=== PATIENT | female | born 1950 | race Caucasian/White ===

== ENCOUNTER 2023-06-25 16:27 | Observation (INO) | payer MEDICARE, BC, SELFPAY ==
[2023-06-25] VITALS (10 sets, daily range): BP systolic 159–192; BP diastolic 82–103; PULSE 73–93; RESP 16–18; TEMP 36.5–36.8; O2SAT 96–99; BMI 30.7; BMI 31.4
--- NOTE | 2023-06-25 17:19 | CRLHL7_ITS ---
For Patients: As a result of the Century Cures Act, medical imaging exams and procedure reports are released immediately into your electronic medical record. You may view this report before your referring provider. If you have questions, please contact your health care provider. INDICATION: Trauma. TECHNIQUE: Multiplanar CT examination of the head was performed without the use of intravenous contrast. COMPARISON: CT head 09/14/2021.. FINDINGS: No loss of lucio-white differentiation suggestive of recent territorial infarct. No intracranial hemorrhage, abnormal extra-axial fluid collection or midline shift. The ventricles and cerebral sulci are prominent in caliber, compatible with mild generalized parenchymal volume loss. Mild patchy periventricular hypoattenuation, nonspecific but suggestive of chronic microvascular ischemic changes.. The basal cisterns are patent. Small right frontal scalp hematoma and right periorbital soft tissue edema. Acute comminuted mildly displaced fracture of the inferior orbital floor with layering hemorrhagic blood products within the right maxillary sinus. There may be slight inferior deviation of the subtly enlarged inferior rectus muscle, raising the possibility of entrapment. There may be trace foci of intraconal gas within the right orbit (2:23 and 6:30). There is questionable haziness of the intraconal fat, raising the possibility of a retrobulbar hematoma (6:27). IMPRESSION: 1. Right frontal scalp hematoma and periorbital soft tissue swelling, with an underlying acute minimally displaced right inferior orbital blowout fracture, with findings questionable for entrapment of the inferior rectus muscle. Haziness of the intraconal fat raises the possibility of a subtle retrobulbar hematoma. Ophthalmological consultation is advised. 2. No intracranial hemorrhage or midline shift. Please note that all CT scans at this facility use dose modulation, iterative reconstruction, and/or weight-based dosing when appropriate to reduce radiation dose to as low as reasonably achievable. Dictated by Paul Gutierrez MD @ 06/25/2023 6:17:42 PM (Electronically Signed)
--- NOTE | 2023-06-25 17:23 | ED.GENADULT ---
HPI - General Adult General Chief complaint: Laceration/Wound Stated complaint: Hit wooden board, head and eye, nausea Time Seen by Provider: 06/25/23 16:42 History of Present Illness HPI narrative: This 73-year-old female comes in reporting a fall where she hit her forehead and her face. She did not have loss of consciousness. She has a laceration below her right eye. She does not report a headache but does feel some nausea. Her tetanus status is up-to-date. She does take a baby aspirin daily. Related Data Home Medications Medication Instructions Recorded Confirmed allopurinol 300 mg tablet 300 mg PO DAILY 06/25/23 06/25/23 escitalopram oxalate 10 mg tablet 10 mg PO QAM 06/25/23 06/25/23 fluticasone propionate 50 1 spray intranasal BID 06/25/23 06/25/23 mcg/actuation nasal spray,suspension levothyroxine 100 mcg tablet 100 mcg PO QAM 06/25/23 06/25/23 (Synthroid) losartan 50 mg tablet mg PO 06/25/23 rosuvastatin 40 mg tablet 40 mg PO QPM 06/25/23 06/25/23 Allergies Allergy/AdvReac Type Severity Reaction Status Date / Time No Known Drug Allergies Allergy Verified 06/25/23 16:39 Review of Systems Status of ROS: Reports: 10 or more systems reviewed and unremarkable except as noted in History and below Narrative: Constitutional: No fevers, no weight gain or loss. Eyes: No discharge. No vision changes. HENT: No congestion, no sore throat, no ear pain. Cardiovascular: No chest pain, no palpitations. Respiratory: No shortness of breath, no wheezes, no cough. Gastrointestinal: No abdominal pain, no vomiting, no diarrhea. Genitourinary: No dysuria, no hematuria. Musculoskeletal: Normal range of motion. Skin: No rashes, no pruritis. Neurological: No dizziness, weakness, sensory change, speech change. Endo/Heme/Allergies: No bruising or bleeding. No polydipsia. Pysch: no suicidality, no anxiety, no insomnia. All other systems reviewed and are negative. PFS PFS Social History Smoking Status: Never smoker How often do you have a drink containing alcohol: never How often do you have six or more drinks on one occasion: Never AUDIT-C Alcohol total score: 0 Non-prescribed substance use: denies use Exam Narrative: Exam Narrative: Constitutional: Well-developed, well-nourished, no acute distress. HEENT: 3 cm laceration of the cheek bone below her right eye. Her right eye has bruising around it. 0.5 cm laceration just below the medial aspect of the right eyebrow. Subconjunctival hematoma in the right eye. Neck: Normal range of motion. Nontender. Supple. Heart: Regular. No murmurs. Normal rate. Intact distal pulses. Lungs: Clear to auscultation. No chest discomfort. No wheezes, rhonchi, or rales. Abdomen: Normal bowel sounds. Nontender. No rebound tenderness. Genitalia: Deferred. Back: No midline tenderness. Normal range of motion. Extremities: Normal range of motion. No injury. Skin: Intact. No rash. Warm. No erythema or pallor. Neurologic: No altered sensation. No weakness. Alert and oriented. Psychiatric: No suicidality. No anxiety or depression. No insomnia. Nursing notes and vitals signs are reviewed. Const: Vital Signs, click to edit/add: Vital Signs - 24 hr 06/25/23 16:36 06/25/23 17:15 06/25/23 19:47 Temperature 97.7 F Pulse Rate [Right Pulse Oximeter] 93 92 74 Respiratory Rate 18 16 Blood Pressure [Ri ght Upper Arm] 192/83 H 176/86 H 167/82 H Pulse Oximetry 96 99 98 Oxygen Delivery Me thod Room Air Room Air Room Air 06/25/23 19:49 Temperature Pulse Rate [Right Pulse Oximeter] 73 Respiratory Rate Blood Pressure [Ri ght Upper Arm] 167/82 H Pulse Oximetry 97 Oxygen Delivery Me thod Room Air Course Vital Signs Vital signs: Initial Vital Signs Temperature 97.7 F 06/25/23 16:36 Temperature Source Temporal Artery Scan 06/25/23 16:36 Pulse Rate 93 06/25/23 16:36 Respiratory Rate 18 06/25/23 16:36 Blood Pressure 192/83 H 06/25/23 16:36 Blood Pressure Mean 119 H 06/25/23 16:36 Blood Pressure Position Sitting 06/25/23 16:36 Pulse Oximetry 96 06/25/23 16:36 Oxygen Delivery Method Room Air 06/25/23 16:36 Vital Signs Temperature 97.7 F 06/25/23 16:36 Pulse Rate 93 06/25/23 16:36 Respiratory Rate 18 06/25/23 16:36 Blood Pressure 192/83 H 06/25/23 16:36 Pulse Oximetry 96 06/25/23 16:36 Oxygen Delivery Method Room Air 06/25/23 16:36 Temperature 97.7 F 06/25/23 16:36 Pulse Rate 73 06/25/23 19:49 Respiratory Rate 16 06/25/23 17:15 Blood Pressure 167/82 H 06/25/23 19:49 Pulse Oximetry 97 06/25/23 19:49 Oxygen Delivery Method Room Air 06/25/23 19:49 Medications Administered Medications: Discontinued Medications Generic Name Dose Route Start Last Admin Trade Name Minh PRN Reason Stop Dose Admin Lidocaine/Epinephrine 20 ml 06/25/23 19:20 06/25/23 19:26 Lidocaine 1%-Epi 1:100,000 20 Ml INFILTRATI 06/25/23 19:21 20 ml ONCE ONE Administration Ondansetron HCl 4 mg 06/25/23 17:19 06/25/23 17:25 Ondansetron Odt 4 Mg Tab PO 06/25/23 17:20 4 mg ONCE ONE Administration Medical Decision Making MDM Narrative Medical decision making narrative: This patient comes in for evaluation and treatment of an injury to her head as described above. She does take a baby aspirin daily. She has a laceration below her right eye and a very small 1 in the upper medial eyelid. CT imaging of her head is obtained and shows no intracranial abnormality. She does have a inferior orbital fracture. Radiologist was concerned about entrapment of eye muscles but on exam she does not display any such and trap mint. After anesthesia with 1% lidocaine with epinephrine the wound is continuing to bleed and during the injection of anesthesia this triggered more bleeding as there is a small vessel involved. I did place 7 sutures using 5.0 Ethilon suture in interrupted fashion. This because the bleeding to stop but she very quickly developed a underlying hematoma. About 10 minutes afterwards she did have a sport of blood coming between the sutures because of the pressure of blood under the skin. She then had surge of foam placed with a pressure dressing to arrest the bleeding. The patient was able to get up and ambulate but states that she does not feel safe going home as she lives at home alone. I did speak with Dr. Saldaña regarding her and she is agreed to bring her into the hospital overnight. Imaging Data CT scan - head: Radiologist's impression: 1. Right frontal scalp hematoma and periorbital soft tissue swelling, with an underlying acute minimally displaced right inferior orbital blowout fracture, with findings questionable for entrapment of the inferior rectus muscle. Haziness of the intraconal fat raises the possibility of a subtle retrobulbar hematoma. Ophthalmological consultation is advised. 2. No intracranial hemorrhage or midline shift. Discharge Plan Discharge Clinical Impression: Laceration, Fracture of inferior orbital wall Patient Disposition: Admitted As Observation Condition: Stable Prescriptions: No Action losartan 50 mg tablet PO levothyroxine [Synthroid] 100 mcg tablet 100 mcg PO QAM allopurinol 300 mg tablet 300 mg PO DAILY fluticasone propionate 50 mcg/actuation spray,suspension 1 spray INTRANASAL BID escitalopram oxalate 10 mg tablet 10 mg PO QAM rosuvastatin 40 mg tablet 40 mg PO QPM Follow Up/Referrals: Sonny Loredo MD [Primary Care Provider] -
[2023-06-25] MEDS: ONDANSETRON ODT 4 MG TAB PO (17:25)
--- NOTE | 2023-06-25 20:00 | ED.NURSE ---
Pt R cheek lac oozing steady small amount of blood after stitches placed by MD. MD notified, MD in room and placed surgifoam and gauze over stitches, bond writer applied coban wrap around pt's head to apply pressure over lac.
--- NOTE | 2023-06-25 20:30 | ED.NURSE ---
Pt declines ordered abx at this time due concern of possible allergy conflict. No allergies entered in our system at this time. Pt provided casualty underwriter with allergy list, casualty underwriter updated this list in the chart. Pt states she does not want to take any abx here until we are able to access her [facility] chart and confirm that her allergy list is consistent with what is in the [facility] chart. Report called to M/S RN, M/S RN advised of pt's concern about her allergy list and her concerns about her discomfort near her bandage site.
--- NOTE | 2023-06-25 20:31 | ED.NURSE ---
Pt complaining of discomfort/pain at the site of her wound bandage over her R eye. Pt states her R eye is painful from the bandage. Bandage assessed, the gauze from the bandage does not appear to be putting any direct pressure on the pt's eye. The patient's R eyebrow and R eyelid are notably swollen and bruised from her injury; tag writer explained to pt that this bruising and swelling may be causing the pain around her R eye. Reception Interviewer inquired if pt would like some pain medication due to her pain. Pt responds: No, I want you to fix this bandage. Reception Interviewer again explained that the bandage was in place to control bleeding from the lac and unfortunately this may continue to cause discomfort due to the pt's bruising and swelling around her eye. Pt continues to request modification of bandage to accommodate her complaint of discomfort. Bandage again assessed for possible modification by tag writer; tag writer unable to modify bandage at this time in a way that would not compromise the purpose of the bandage.
[2023-06-25] MEDS: ACETAMINOPHEN 500 MG TABLET 1000 MG PO (21:28)
--- NOTE | 2023-06-25 22:27 | PM.IMHP1 ---
Hospitalist- H&P: HPI History of Present Illness Time Seen by Provider: 22:00 Date Seen: 06/25/23 Chief complaint: Hit wooden board, head and eye, nausea Narrative: Eileen Chou is a 73 year old female with a history of paroxysmal atrial fibrillation for which she is not on anticoagulation, coronary artery disease, unstable angina, hypertensive urgency, obstructive sleep apnea, and hypothyroidism who was taking apart it desk in her basement this evening when she tripped on part of it and fell into the corner of a piece of wood lying on the floor. The corner went into her cheek just under her right eye. She denies any loss of consciousness. She immediately reached up with her hand and when she took it away it was full of blood. She was able to see out of her eye immediately. She grabbed some laundry that was nearby and pressed it to her eye, went upstairs and called 911. She was in her usual state of health and feeling well prior to this happening. Since this happened she has felt nauseous and dizzy especially with laying down flat. In the emergency department the laceration was stitched up in she had head CT. She was still oozing from the laceration and so surgeon foam and a pressure dressing were applied. Review of Systems Status of ROS: Reports: 10 or more systems reviewed and unremarkable except as noted in History and below [facility] Medical History (Updated 06/25/23 @ 22:31 by Sarah Saldaña MD) Degenerative joint disease of right acromioclavicular joint ?M19.011 - Primary osteoarthritis, right shoulder (ICD-10) Primary osteoarthritis of right shoulder ?M19.011 - Primary osteoarthritis, right shoulder (ICD-10) Hypokalemia ?E87.6 - Hypokalemia (ICD-10) Paroxysmal atrial fibrillation ?I48.0 - Paroxysmal atrial fibrillation (ICD-10) Hypertensive urgency ?I16.0 - Hypertensive urgency (ICD-10) Hyperlipidemia ?E78.5 - Hyperlipidemia, unspecified (ICD-10) Stenosis of right carotid artery ?I65.21 - Occlusion and stenosis of right carotid artery (ICD-10) Unstable angina ?I20.0 - Unstable angina (ICD-10) Coronary artery disease involving [place] coronary artery of [place] heart with angina pectoris ?I25.119 - Atherosclerotic heart disease of [place] coronary artery with unspecified angina pectoris (ICD-10) Impingement syndrome of left shoulder ?M75.42 - Impingement syndrome of left shoulder (ICD-10) Incomplete tear of left rotator cuff ?M75.112 - Incomplete rotator cuff tear or rupture of left shoulder, not specified as traumatic (ICD-10) Hyperuricemia ?E79.0 - Hyperuricemia without signs of inflammatory arthritis and tophaceous disease (ICD-10) Adhesive capsulitis of left shoulder ?M75.02 - Adhesive capsulitis of left shoulder (ICD-10) Acute idiopathic gout involving toe of right foot ?M10.071 - Idiopathic gout, right ankle and foot (ICD-10) Hyperopia of both eyes with astigmatism and presbyopia ?H52.03 - Hypermetropia, bilateral (ICD-10) ?H52.203 - Unspecified astigmatism, bilateral (ICD-10) ?H52.4 - Presbyopia (ICD-10) Right thyroid nodule ?E04.1 - Nontoxic single thyroid nodule (ICD-10) Nuclear senile cataract of both eyes ?H25.13 - Age-related nuclear cataract, bilateral (ICD-10) NAVIN (obstructive sleep apnea) ?G47.33 - Obstructive sleep apnea (adult) (pediatric) (ICD-10) Eczema ?L30.9 - Dermatitis, unspecified (ICD-10) Obesity (BMI 30-39.9) ?E66.9 - Obesity, unspecified (ICD-10) Tinnitus ?H93.19 - Tinnitus, unspecified ear (ICD-10) Sensorineural hearing loss (SNHL) of both ears ?H90.3 - Sensorineural hearing loss, bilateral (ICD-10) Dysfunction of eustachian tube ?H69.90 - Unspecified Eustachian tube disorder, unspecified ear (ICD-10) Hypertension ?I10 - Essential (primary) hypertension (ICD-10) Hypothyroidism ?E03.9 - Hypothyroidism, unspecified (ICD-10) Surgical History (Updated 06/25/23 @ 21:48 by Sarah Saldaña MD) S/P total abdominal hysterectomy and bilateral salpingo-oophorectomy (~2000) ?Z90.710 - Acquired absence of both cervix and uterus (ICD-10) ?Z90.722 - Acquired absence of ovaries, bilateral (ICD-10) ?Z90.79 - Acquired absence of other genital organ(s) (ICD-10) H/O foot surgery ?Z98.890 - Other specified postprocedural states (ICD-10) S/P left knee arthroscopy (~06/27/18) ?Z98.890 - Other specified postprocedural states (ICD-10) Hx of colonoscopy ?Z98.890 - Other specified postprocedural states (ICD-10) S/P drug eluting coronary stent placement ?Z95.5 - Presence of coronary angioplasty implant and graft (ICD-10) S/P laparoscopic cholecystectomy (~08/10/21) ?Z90.49 - Acquired absence of other specified parts of digestive tract (ICD-10) H/O carotid endarterectomy ?Z98.890 - Other specified postprocedural states (ICD-10) S/P left rotator cuff repair ?Z98.890 - Other specified postprocedural states (ICD-10) Family History (Updated 06/25/23 @ 21:50 by Sarah Saldaña MD) Mother Asthma Brother Diabetes Coronary artery disease Malignant hyperthermia Father Coronary artery disease Thyroid cancer Glaucoma Maternal Grandfather Coronary artery disease Paternal Grandfather Coronary artery disease Paternal Grandmother Multiple myeloma Social History (Updated 06/25/23 @ 22:28 by Sarah Saldaña MD) Narrative: Lives alone independently in her own home. Her 4 years ago. Smoked 20 pack years, quit 1977. Denies alcohol use. What is your current living situation?: I presently have a place to live Problems where you live: no known problems Problems where you live details: NA In the past 12 months, utilities in danger of being shut off: no In past 12 months, lack of transportation kept you from medical appts, meetings, work, or getting things needed for daily living: no In the past 12 mos, have been you worried that your food would run out before you had money to buy more?: never true In the past 12 mos, the food you bought just didn't last and you didn't have money to buy more?: never true Highest level of school completed/degree received: high school graduate Smoking Status: Never smoker Second hand tobacco smoke exposure: No How often do you have a drink containing alcohol: never How often do you have six or more drinks on one occasion: Never AUDIT-C Alcohol total score: 0 Non-prescribed substance use: denies use Caffeine: No How often does anyone, including family, friends and others, physically hurt you: never How often does anyone, including family, friends and others, insult or talk down to you: never How often does anyone, including family, friends and others, threaten you with harm: never How often does anyone, including family, friends and others, scream or curse at you: never service: No Meds Home Medications and Allergies Home Medications Medication Instructions Recorded Confirmed Type allopurinol 300 mg tablet 300 mg PO DAILY 06/25/23 06/25/23 History aspirin 81 mg capsule 81 mg PO DAILY 06/25/23 06/25/23 History cinnamon bark 500 mg capsule 1,000 mg PO DAILY 06/25/23 06/25/23 History (Cinnamon) escitalopram oxalate 10 mg tablet 10 mg PO QAM 06/25/23 06/25/23 History fluticasone propionate 50 1 spray intranasal BID 06/25/23 06/25/23 History mcg/actuation nasal spray,suspension levothyroxine 100 mcg tablet 100 mcg PO QAM 06/25/23 06/25/23 History (Synthroid) losartan 50 mg tablet 100 mg PO DAILY 06/25/23 06/25/23 History potassium chloride 10 mEq 10 meq PO 3XD 06/25/23 06/25/23 History capsule,extended release rosuvastatin 40 mg tablet 40 mg PO QPM 06/25/23 06/25/23 History triamterene 37.5 1 cap PO BID 06/25/23 06/25/23 History mg-hydrochlorothiazide 25 mg capsule turmeric 400 mg capsule 500 mg PO DAILY 06/25/23 06/25/23 History zinc gluconate 50 mg tablet 50 mg PO DAILY 06/25/23 06/25/23 History Allergies Allergy/AdvReac Type Severity Reaction Status Date / Time SIMONE Inhibitors Allergy Unknown Verified 06/25/23 20:26 cefuroxime [From Ceftin] Allergy Unknown Verified 06/25/23 20:26 fentanyl Allergy Unknown Verified 06/25/23 20:26 latex Allergy Unknown Verified 06/25/23 20:26 levofloxacin [From Levaquin] Allergy Unknown Verified 06/25/23 20:26 Exam Narrative: Exam Narrative: General: No acute distress. Awake alert oriented x3. HEENT: Dressing over right eye which I moved enough to see there was no pressure on the eye. Right eyelids are markedly ecchymotic and swollen. I did not remove the dressing from the laceration due to the risk of rebleeding. The dressings are clean and dry. Small amount of dried blood at the nares. Oropharynx clear, no chipped or loose teeth. Mucous membranes are moist. No cervical lymphadenopathy, thyromegaly or carotid bruits. No JVD. Cardiovascular: Regular rate and rhythm. No murmurs, gallops, or rubs. Chest: No increased work of breathing. Clear to auscultation bilaterally. No crackles or wheezes. Abdomen: Bowel sounds present. Soft, nondistended, nontender. No hepatosplenomegaly or masses. Extremities: No edema, no cyanosis or clubbing. Skin: No jaundice, no pallor, no rashes. Const: Vital Signs, click to edit/add: Vital Signs - 24 hr 06/25/23 16:36 06/25/23 17:15 06/25/23 19:47 Temperature 97.7 F Pulse Rate [Left R adial] Pulse Rate [Right Pulse Oximeter] 93 92 74 Respiratory Rate 18 16 Blood Pressure [Le ft Arm] Blood Pressure [Ri ght Upper Arm] 192/83 H 176/86 H 167/82 H Pulse Oximetry 96 99 98 Oxygen Delivery Me thod Room Air Room Air Room Air 06/25/23 19:49 06/25/23 21:07 06/25/23 21:28 Temperature 98.2 F 98.2 F Pulse Rate [Left R adial] 85 Pulse Rate [Right Pulse Oximeter] 73 Respiratory Rate 16 Blood Pressure [Le ft Arm] 182/89 H Blood Pressure [Ri ght Upper Arm] 167/82 H Pulse Oximetry 97 96 Oxygen Delivery Me thod Room Air Room Air Hospitalist - H&P: Result Labs Labs: Ordering Physician: Harvinder King M.D. Date of Service: 06/25/23 Procedure(s): CT head/brain wo con Accession Number(s): [id number] cc: Harvinder King M.D.; Sonny Loredo M.D.~ For Patients: As a result of the Century Cures Act, medical imaging exams and procedure reports are released immediately into your electronic medical record. You may view this report before your referring provider. If you have questions, please contact your health care provider. INDICATION: Trauma. TECHNIQUE: Multiplanar CT examination of the head was performed without the use of intravenous contrast. COMPARISON: CT head 09/14/2021.. FINDINGS: No loss of lucio-white differentiation suggestive of recent territorial infarct. No intracranial hemorrhage, abnormal extra-axial fluid collection or midline shift. The ventricles and cerebral sulci are prominent in caliber, compatible with mild generalized parenchymal volume loss. Mild patchy periventricular hypoattenuation, nonspecific but suggestive of chronic microvascular ischemic changes.. The basal cisterns are patent. Small right frontal scalp hematoma and right periorbital soft tissue edema. Acute comminuted mildly displaced fracture of the inferior orbital floor with layering hemorrhagic blood products within the right maxillary sinus. There may be slight inferior deviation of the subtly enlarged inferior rectus muscle, raising the possibility of entrapment. There may be trace foci of intraconal gas within the right orbit (2:23 and 6:30). There is questionable haziness of the intraconal fat, raising the possibility of a retrobulbar hematoma (6:27). IMPRESSION: 1. Right frontal scalp hematoma and periorbital soft tissue swelling, with an underlying acute minimally displaced right inferior orbital blowout fracture, with findings questionable for entrapment of the inferior rectus muscle. Haziness of the intraconal fat raises the possibility of a subtle retrobulbar hematoma. Ophthalmological consultation is advised. 2. No intracranial hemorrhage or midline shift. Please note that all CT scans at this facility use dose modulation, iterative reconstruction, and/or weight-based dosing when appropriate to reduce radiation dose to as low as reasonably achievable. Dictated by Paul Gutierrez MD @ 06/25/2023 6:17:42 PM (Electronically Signed) Assessment and Plan Assessment and plan (1) Fall against object: Status: Acute (2) Fracture of inferior orbital wall: Status: Acute (3) Laceration: Status: Acute (4) Hypertension: Status: Chronic (5) Hypothyroidism: Problem comment: 03/2016 ultrasound showing a heterogeneous gland. 1.3 cm right lower lobe nodule. Repeat ultrasound done before FNA shows that the above nodule is not seen Status: Chronic (6) Paroxysmal atrial fibrillation: Status: Chronic (7) NAVIN (obstructive sleep apnea): Problem comment: 04/02/2001 AHI-18 Status: Chronic Plan 73 y/o female with a history of paroxysmal atrial fibrillation for which she is not on anticoagulation, coronary artery disease, unstable angina, hypertensive urgency, obstructive sleep apnea, and hypothyroidism who fell and sustained a right inferior orbital wall fracture and laceration to the skin just below the eye. Admit for observation and assessment of gait and ADLs tomorrow with PT/OT. Her daughter will be coming to stay with her upon discharge. Pain control with APAP prn and oxycodone prn. Had tetanus vaccination 2 years ago. Treat with prophylactic clindamycin (allergic to cephalosporins) for 5 days.
[2023-06-25] MEDS: CLINDAMYCIN 150 MG CAPSULE PO (23:13)
[2023-06-25] MEDS: TRIAMTERENE-HCTZ 37.5-25 MG TB 1 TAB PO (23:13)
[2023-06-26 02:49] VITALS: BP 136/71; PULSE 70; RESP 16; TEMP 36.9; O2SAT 95
--- NOTE | 2023-06-26 04:14 | PC.NURSE ---
Pt rested well this night. Tolerating pain with Tylenol. No dizziness, nausea, or headache. Pt up IND in room.
[2023-06-26 07:00] VITALS: BP 177/88; PULSE 77; RESP 16; TEMP 36.9; O2SAT 95
[2023-06-26] MEDS: POTASSIUM CHLORIDE 10 MEQ CAPSULE ER 30 MEQ PO (07:50)
[2023-06-26] MEDS: LACTOBACILLUS ACIDOPHILUS 1 TABLET 2 TAB PO (07:50)
[2023-06-26] MEDS: LOSARTAN POTASSIUM 50 MG TABLET 100 MG PO (08:36)
[2023-06-26] MEDS: LEVOTHYROXINE 100 MCG TABLET PO (08:36)
[2023-06-26] MEDS: ESCITALOPRAM 10 MG TABLET PO (08:36)
[2023-06-26] MEDS: TRIAMTERENE-HCTZ 37.5-25 MG TB 1 TAB PO (08:36)
[2023-06-26] MEDS: allopurinoL 300 MG TABLET PO (08:36)
[2023-06-26] MEDS: CLINDAMYCIN 150 MG CAPSULE PO (09:19)
[2023-06-26] MEDS: ACETAMINOPHEN 500 MG TABLET 1000 MG PO (10:35)
[2023-06-26] MEDS: ONDANSETRON ODT 4 MG TAB PO (11:14)
--- NOTE | 2023-06-26 12:12 | PC.NURSE ---
Patient discharged to home with plans to go straight to appointment with Eye Dr in [place]. Patient educated on discharge instructions, no questions from patient. All belongings sent with patient. No antibiotics given per MD. Patient left unit via wheelchair in private vehicle with daughter.
--- NOTE | 2023-06-26 12:52 | PM.DS1 ---
DS: Providers Provider Date Seen: 06/26/23 Date of admission: 06/25/23 20:32 Primary care physician: Sonny Loredo MD Admitting Clinician: Sarah Saldaña MD Attending Physician on discharge: Elier Rhodes MD Date of Discharge: 06/26/23 DS: Diagnosis Discharge Diagnosis (1) Fall against object: Status: Acute Problem details: Accidental fall with head injury. Other than her globe fracture with diplopia she is doing well (2) Fracture of inferior orbital wall: Status: Acute Problem details: Possible retro-orbital hematoma and possible to entrapment of lateral rectus muscle. She has a follow-up appointment with [facility] in [place] at 1:15 p.m. this afternoon. (3) Paroxysmal atrial fibrillation: Status: Chronic (4) Coronary artery disease involving [place] coronary artery of [place] heart with angina pectoris: Status: Acute Problem details: Drug eluting stents placed 04/02/2018. Currently on aspirin. Recommend holding aspirin until follow-up with Ophthalmology (5) NAVIN (obstructive sleep apnea): Status: Chronic Problem details: 04/02/2001 AHI-18 (6) Laceration: Status: Acute Problem details: Sutures out in 5 or 6 days DS: Summary Hospital Course Hospital Course: 73-year-old female admitted to the hospital after falling at home. Her right eye struck a piece of wood which caused a laceration of her infraorbital rim and severe bruising around her eye. Radiographs in the emergency department showed a fracture of the inferior orbit with possible entrapment of the inferior rectus muscle and possibly a retrobulbar hematoma. She has had diplopia to inferior and lateral gaze. She has some dizziness and nausea associated with this as well. She has been able to ambulate. I spoke with [facility] and they are going to see her in clinic this afternoon to evaluate. Status at Discharge Functional status at discharge: independent ambulation Overall status at discharge: patient is progressing back to baseline Time Spent with Patient Time attestation: Total time spent providing and/or coordinating discharge services: 40 minutes Time spent: Greater than 30 minutes Exam Narrative: Exam Narrative: Head notable for prominent bruising around the right eye both above and below the eye and involving eyelids. She has a very prominent subconjunctival hemorrhage. Pupil appears normal. Extraocular movements are limited in the right eye. She has restriction on inferior and lateral gaze in her right eye. Left eye has normal motion. With this restriction of movement in her right eye she has diplopia on inferior and lateral gaze as well. Const: Vital Signs, click to edit/add: Vital Signs - 24 hr 06/25/23 16:36 06/25/23 17:15 06/25/23 19:47 Temperature 97.7 F Pulse Rate [Left R adial] Pulse Rate [Right Pulse Oximeter] 93 92 74 Respiratory Rate 18 16 Blood Pressure [Le ft Arm] Blood Pressure [Ri ght Upper Arm] 192/83 H 176/86 H 167/82 H Pulse Oximetry 96 99 98 Oxygen Delivery Me thod Room Air Room Air Room Air 06/25/23 19:49 06/25/23 21:07 06/25/23 21:28 Temperature 98.2 F 98.2 F Pulse Rate [Left R adial] 85 Pulse Rate [Right Pulse Oximeter] 73 Respiratory Rate 16 Blood Pressure [Le ft Arm] 182/89 H Blood Pressure [Ri ght Upper Arm] 167/82 H Pulse Oximetry 97 96 Oxygen Delivery Me thod Room Air Room Air 06/25/23 22:48 06/25/23 22:49 06/25/23 22:50 Temperature 98.2 F Pulse Rate [Left R adial] 84 84 Pulse Rate [Right Pulse Oximeter] Respiratory Rate 16 16 16 Blood Pressure [Le ft Arm] 159/103 H Blood Pressure [Ri ght Upper Arm] Pulse Oximetry 96 96 Oxygen Delivery Me thod Room Air Room Air 06/25/23 22:52 06/26/23 02:49 06/26/23 07:00 Temperature 98.2 F 98.4 F Pulse Rate [Left R adial] 70 77 Pulse Rate [Right Pulse Oximeter] Respiratory Rate 16 16 Blood Pressure [Le ft Arm] 136/71 Blood Pressure [Ri ght Upper Arm] Pulse Oximetry 95 Oxygen Delivery Me thod Room Air 06/26/23 07:00 06/26/23 07:00 Temperature 98.4 F Pulse Rate [Left R adial] 77 Pulse Rate [Right Pulse Oximeter] Respiratory Rate 16 16 Blood Pressure [Le ft Arm] 177/88 H Blood Pressure [Ri ght Upper Arm] Pulse Oximetry 95 95 Oxygen Delivery Me thod Room Air Room Air Documenting provider has reviewed patient's vital signs: yes DS: Data Imaging CT scan - head: Radiologist's impression: INDICATION: Trauma. TECHNIQUE: Multiplanar CT examination of the head was performed without the use of intravenous contrast. COMPARISON: CT head 09/14/2021.. FINDINGS: No loss of lucio-white differentiation suggestive of recent territorial infarct. No intracranial hemorrhage, abnormal extra-axial fluid collection or midline shift. The ventricles and cerebral sulci are prominent in caliber, compatible with mild generalized parenchymal volume loss. Mild patchy periventricular hypoattenuation, nonspecific but suggestive of chronic microvascular ischemic changes.. The basal cisterns are patent. Small right frontal scalp hematoma and right periorbital soft tissue edema. Acute comminuted mildly displaced fracture of the inferior orbital floor with layering hemorrhagic blood products within the right maxillary sinus. There may be slight inferior deviation of the subtly enlarged inferior rectus muscle, raising the possibility of entrapment. There may be trace foci of intraconal gas within the right orbit (2:23 and 6:30). There is questionable haziness of the intraconal fat, raising the possibility of a retrobulbar hematoma (6:27). IMPRESSION: 1. Right frontal scalp hematoma and periorbital soft tissue swelling, with an underlying acute minimally displaced right inferior orbital blowout fracture, with findings questionable for entrapment of the inferior rectus muscle. Haziness of the intraconal fat raises the possibility of a subtle retrobulbar hematoma. Ophthalmological consultation is advised. 2. No intracranial hemorrhage or midline shift. Discharge Plan Discharge Disposition: Home, Self-Care Date of Admission: 06/25/23 20:32 Attending Provider on Discharge: Hossein Rhodes Primary Care Provider: Sonny Loredo Condition: Stable Anticipated Discharge Date/Time: 06/26/23 11:00 Discharge Medications: New hydroxyzine pamoate [Vistaril] 25 mg capsule 25 mg PO TID PRNQty: 20 0RF Continued losartan 50 mg tablet 100 mg PO DAILY levothyroxine [Synthroid] 100 mcg tablet 100 mcg PO QAM allopurinol 300 mg tablet 300 mg PO DAILY fluticasone propionate 50 mcg/actuation spray,suspension 1 spray INTRANASAL BID escitalopram oxalate 10 mg tablet 10 mg PO QAM rosuvastatin 40 mg tablet 40 mg PO QPM potassium chloride 10 mEq capsule, extended release 10 meq PO 3XD triamterene-hydrochlorothiazid 37.5-25 mg capsule 1 cap PO BID cinnamon bark [Cinnamon] 500 mg capsule 1,000 mg PO DAILY turmeric 400 mg capsule 500 mg PO DAILY zinc gluconate 50 mg tablet 50 mg PO DAILY Held aspirin 81 mg capsule 81 mg PO DAILY Hold Instructions: Resume on 06/28/23. Hold aspirin until you have discussed with your eye doctor Discharge Orders: Discharge Order (Routine); Ordered 06/26/23 Ordered By: Hossein Rhodes Patient Education: Hydroxyzine (By mouth), Care For Your Stitches (DC) Additional Instructions: You have an appointment at [facility] in [place] at 1:15 p.m. today. Address is [address] [place] [address], [address], [facility]. Please find someone to drive you there. Bring your photo ID and insurance information. Also bring your CT scan images. No driving until cleared by your eye doctor. Activity Level: Activity as Tolerated Discharge Diet: Regular Follow Up Appointments: Gala Altman [Other] - 07/01/23 10:30 am Sonny Loredo MD [Primary Care Provider] - Forms: [facility] Info Instructions
--- NOTE | 2023-06-26 14:21 | REH.OT ---
OT: Order received, chart reviewed and patient had discharged prior to OT eval due to eye appointment. Spoke with PT who indicates that patient did not present with OT needs identified during PT session.
== END 2023-06-26 12:05 | disposition home or self-care (01) ==
LOC: ED 20:11 → MEDSURG 20:33
PROVIDERS: Admitting Provider Family Medicine; Emergency Provider Emergency Medicine Emergency Medical Services; Visit Provider Family Medicine
DX: S02.30XA Fracture of orbital floor, unspecified side, initial encounter for closed fracture (principal); W18.00XA Striking against unspecified object with subsequent fall, initial encounter; I10 Essential (primary) hypertension; E03.9 Hypothyroidism, unspecified; I48.0 Paroxysmal atrial fibrillation; G47.33 Obstructive sleep apnea (adult) (pediatric); I25.119 Atherosclerotic heart disease of native coronary artery with unspecified angina pectoris
CPT/HCPCS: 12013; 70450; 97161; 99284; 99285; A9270; G0378